=== PATIENT | male | born 1970 | race Caucasian/White ===

== ENCOUNTER 2024-09-30 18:29 | Emergency (ER) | payer OTHER, SELFPAY ==
[2024-09-30 18:43] VITALS: BP 121/79; PULSE 106; RESP 16; TEMP 36.4; O2SAT 99
[2024-09-30] MEDS: LIDOCAINE 1% LOCAL INJ 2 ML AMPUL 4 ML INFILTRATE (19:21)
--- NOTE | 2024-09-30 19:37 | ED.SKABFB ---
HPI - Skin/Abscess/Foreign Bdy General Chief complaint: Skin/Abscess/Foreign Body Stated complaint: right forearm swollen,sore Time Seen by Provider: 09/30/24 18:50 Source: patient and RN notes reviewed Mode of arrival: ambulatory Limitations: no limitations History of Present Illness HPI narrative: Patient presents today complaining of an abscess and redness to the right forearm x3 days. He increasing swelling to the right forearm since onset. History of abscess to the left hand. He has tried triple antibiotic ointment without improvement. Related Data Allergies Allergy/AdvReac Type Severity Reaction Status Date / Time No Known Allergies Allergy Mild Unverified 09/30/24 18:50 Review of Systems Review of Systems: CONSTITUTIONAL: Denies body aches, fever, chills, or sweats. EYES: Denies visual changes, redness, or discharge. ENT: Denies rhinorrhea, congestion, sore throat, or otalgia. CARDIOVASCULAR: Denies chest pain, palpitations, or edema. RESPIRATORY: Denies cough or dyspnea. GASTROINTESTINAL: Denies abdominal pain, nausea, vomiting, or diarrhea. GENITOURINARY: Denies dysuria or hematuria. SKIN: Right forearm swelling and pain MUSCULOSKELETAL: Denies back pain, joint pain, or myalgia. NEUROLOGIC: Denies headache, numbness, tingling, or weakness. PSYCH: Denies depression or anxiety. PMFSH Comments At time of signature, I have reviewed and agree with nursing past medical, surgical, social and family history unless otherwise noted. Please see nursing chart for further information. There is no relevant family history pertinent to the presenting complaint Exam Narrative: GENERAL: Well-appearing, well-nourished, and in no acute distress. HEAD: Normocephalic, atraumatic. EYES: EOMI. No redness or drainage. Conjunctivae normal. ENT: Mucous membranes pink and moist. NECK: Normal AROM. CHEST: No respiratory distress. EXTREMITIES: Right forearm: Mild to moderate swelling erythema of the forearm with 2 cm round lesion on the ulnar aspect with some clear drainage and induration. Tender to palpation. See procedure note SKIN: Warm, dry, no rash. Capillary refill normal. Normal skin turgor. NEURO: No focal deficits. Alert and oriented x3. Gait steady. PSYCH: Normal affect. No signs of depression or anxiety. Course Course Level of Care: Express Care Visit Vital Signs Vital signs: Vital Signs Temperature 97.6 F 09/30/24 18:43 Pulse Rate 106 H 09/30/24 18:43 Respiratory Rate 16 09/30/24 18:43 Blood Pressure 121/79 09/30/24 18:43 Pulse Oximetry 99 09/30/24 18:43 Oxygen Delivery Room Air 09/30/24 18:43 Temperature 97.6 F 09/30/24 18:43 Pulse Rate 106 H 09/30/24 18:43 Respiratory Rate 16 09/30/24 18:43 Blood Pressure 121/79 09/30/24 18:43 Pulse Oximetry 99 09/30/24 18:43 Oxygen Delivery Room Air 09/30/24 18:43 Reviewed Procedures Abscess I/D upper extremity: Date of Incision: 09/30/24 Time of Incision: 19:38 Side (if applicable): right (Forearm) Local Anesthetic: lidocaine 1% Amount of anesthesia used (mL): 3 Technique: incised with #11 blade Amount of fluid expressed (mL): 2 Irrigation: Yes Packing used?: none I&D Results: Pus and Blood Abcess I&D Additional Comments: Dressed with large Band-Aid. Patient tolerated procedure well MDM - Skin/Abscess/Foreign Bdy MDM Narrative Medical decision making narrative: Patient's abscess has been lanced and drained. Prescription for Bactrim sent to pharmacy. Anticipatory guidance given. Differential Diagnosis Differential diagnosis: Likely abscess of skin or subcutaneous tissue and cellulitis Critical Care Time Critical Care Time Critical Care Time: No Discharge Plan Discharge Clinical Impression: Abscess of forearm, right Patient Disposition: Home, Self-Care Condition: Stable Instructions: Antibiotic Form, Abscess Follow-up (ED), Abscess Incision and Drainage (DC) Additional Instructions: Your abscess has been lanced and drained. Wash with soap and water daily and keep covered until scabbed over. Take the Bactrim as prescribed until gone. Take Tylenol or ibuprofen for pain if needed. Follow-up with your PCP with any concerns. Go to the ER with any worsening symptoms such as fever, worsening swelling or redness. Your blood pressure was elevated above 120/80 today at Urgent Care. This puts you above the threshold for follow up. Please schedule a followup visit with your personal physician as soon as possible, for further evaluation and treatment. Even blood pressure exceeding 120/80 may indicate pre-hypertension. Patient Language: [place] Prescriptions: New sulfamethoxazole-trimethoprim [Bactrim DS] 800-160 mg tablet 1 tablet PO Q12H 10 Days Qty: 20 0RF Follow-up/Referrals: Scot Mcintosh MD [Primary Care Provider] - Time of Disposition: 19:40
== END 2024-09-30 19:45 | disposition home or self-care (01) ==
PROVIDERS: Emergency Provider Nurse Practitioner; PCP Family Medicine Adolescent Medicine
DX: L02.413 Cutaneous abscess of right upper limb (principal)
CPT/HCPCS: 10060; 99213; G0463; J2003

== ENCOUNTER 2024-10-23 19:31 | Emergency (ER) | payer OTHER, SELFPAY ==
[2024-10-23 19:38] VITALS: BP 118/71; PULSE 108; RESP 20; TEMP 37; O2SAT 100
--- NOTE | 2024-10-23 19:40 | ED_ITS ---
HPI - Skin/Abscess/Foreign Bdy General Chief complaint: Skin/Abscess/Foreign Body Stated complaint: cyst below knee right leg Time Seen by Provider: 10/23/24 19:40 Source: patient, RN notes reviewed and old records reviewed Mode of arrival: ambulatory Limitations: no limitations History of Present Illness HPI narrative: 53-year-old male presents to the [facility] with a abscess below the right knee. States that he noticed it yesterday. No treatment prior to arrival. Has a history of multiple abscesses or cysts. Related Data Allergies Allergy/AdvReac Type Severity Reaction Status Date / Time No Known Allergies Allergy Mild Unverified 09/30/24 18:50 Review of Systems Review of Systems: All systems reviewed & are unremarkable except as noted in HPI and below Constitutional: Constitutional: Reports no additional constitutional complaints ENT: Reports system reviewed and no additional complaints, except as documented Cardiovascular: Cardiovascular: Reports no additional cardiovascular complaints, Denies chest pain and Denies dyspnea Respiratory: Respiratory: Reports no additional respiratory complaints, Denies chest congestion, Denies cough and Denies dyspnea Musculoskeletal: Musculoskeletal: Reports no additional musculoskeletal complaints Integumentary/Breasts: Skin/Breast: Reports as per HPI PMFSH Comments At the time of my signature, I reviewed and agree with the nursing past medical, surgical, social, and family history. There is no relevant family history pertinent to the patient complaint. Exam Const: General: cooperative, healthy appearing, comfortable, no acute distress , well developed, alert and well nourished Nutritional Appearance: well nourished Orientation/consciousness: patient oriented x3 Limitations: no limitations HENMT: Head: normal to inspection Eyes: General: appearance normal, both eyes and all related structures Alignment and Position: alignment normal Neck: Neck: normal visual inspection, full ROM, no lymphadenopathy and no meningeal signs Chest: Chest palpation & inspection: normal inspection of the chest Resp: Effort & Inspection: normal respiratory effort and able to speak in complete sentences Cardio: Rate: regular rate Skin: General skin exam: normal color and no rashes or lesions noted Other: Below right knee, 1 cm pustule, 3 x 5 erythema surrounding. Neuro: General: patient oriented x3, gait normal, moves all extremities and no meningeal signs Cognition (Neuro): normal cognition Speech: normal speech Gait exam (Neuro): Normal gait present Extrem: General: normal to inspection, full ROM, capillary refill normal and normal gait Psych: Appearance: grossly normal and well kempt Mental Status: mental status grossly normal Speech and movement: Normal speech and movement present and Clear speech present Affect: normal affect Attitude: cooperative Course Course Level of Care: Express Care Visit Vital Signs Vital signs: Vital Signs Temperature 98.6 F 10/23/24 19:38 Pulse Rate 108 H 10/23/24 19:38 Respiratory Rate 20 10/23/24 19:38 Blood Pressure 118/71 10/23/24 19:38 Pulse Oximetry 100 10/23/24 19:38 Oxygen Delivery Room Air 10/23/24 19:38 Temperature 98.6 F 10/23/24 19:38 Pulse Rate 108 H 10/23/24 19:38 Respiratory Rate 20 10/23/24 19:38 Blood Pressure 118/71 10/23/24 19:38 Pulse Oximetry 100 10/23/24 19:38 Oxygen Delivery Room Air 10/23/24 19:38 Reviewed Procedures Abscess I/D lower extremity: Date of Incision: 10/23/24 Time of Incision: 19:45 Side (if applicable): right Local Anesthetic: lidocaine 1% Amount of anesthesia used (mL): 2.5 Technique: incised with #11 blade Amount of fluid expressed (mL): 3 I&D Results: Pus Abcess I&D Additional Comments: Explained procedure. Area cleaned with Betadine, injection of lidocaine which patient tolerated not very well. A small incision made to the abscess, purulent drainage noted. Culture collected MDM - Skin/Abscess/Foreign Bdy MDM Narrative Medical decision making narrative: Patient sitting in exam room. Patient is nontoxic in appearance, presents for an abscess to the right below the knee. Area cleaned with Betadine, opened, culture collected. Patient appropriate for outpatient treatment with close follow-up Discharge instructions reviewed with patient, as well as provided in writing per nursing staff. The instructions also include specific and strict return/GO TO THE ER as well as f/u information. All questions have been answered, and the patient deny any further questions with discharge and discharge plan. Some parts of this dictation were generated by voice recognition software and may contain typographical and/or grammatical inaccuracies. Differential Diagnosis Differential diagnosis: Likely abscess of skin or subcutaneous tissue and cellulitis Critical Care Time Critical Care Time Critical Care Time: No Discharge Plan Discharge Clinical Impression: Abscess of skin or subcutaneous tissue Qualifiers: Site of cutaneous abscess: extremity Site of cutaneous abscess of extremity: lower extremity Laterality: right Qualified Code(s): L02.415 - Cutaneous abscess of right lower limb Patient Disposition: Home Condition: Stable Instructions: Antibiotic Form, Abscess (ED), Abscess Incision and Drainage (DC) Additional Instructions: DO NOT pick at the area. This will only make the area worse. Shower and wash with soapy water. Keep area clean and dry. Take all the antibiotics as prescribed. Make sure to keep a dressing in place especially while it is draining Follow up with PCP in 7-10 days go to the ER for worsened condition or Symptoms Patient Language: Bengali Prescriptions: New clindamycin HCl [Cleocin HCl] 300 mg capsule 300 mg PO TID 7 Days Qty: 21 0RF No Action sulfamethoxazole-trimethoprim [Bactrim DS] 800-160 mg tablet 1 tablet PO Q12H 10 Days Qty: 20 0RF Follow-up/Referrals: PHYSICIAN,NURSE PRACTITIONER PHYSICIAN ASSISTANT [Primary Care Provider] - Damion Lugo MD [Physician] - Time of Disposition: 19:53
[2024-10-23] MEDS: LIDOCAINE 1% LOCAL INJ 2 ML AMPUL 4 ML INFILTRATE (19:51)
== END 2024-10-23 20:00 | disposition home or self-care (01) ==
PROVIDERS: Emergency Provider Nurse Practitioner
DX: L02.415 Cutaneous abscess of right lower limb (principal)
CPT/HCPCS: 10060; 87070; 87075; 87181; 87205; 99213; G0463; J2003

== ENCOUNTER 2024-10-28 14:34 | Emergency (ER) | payer OTHER, SELFPAY ==
[2024-10-28 14:42] VITALS: BP 135/78; PULSE 104; RESP 20; TEMP 36.5; O2SAT 97
--- NOTE | 2024-10-28 14:42 | ED_ITS ---
HPI - Skin/Abscess/Foreign Bdy General Chief complaint: Extremity Problem,Nontraumatic Stated complaint: abscess right knee came back Time Seen by Provider: 10/28/24 14:35 Source: patient Mode of arrival: ambulatory Limitations: no limitations History of Present Illness HPI narrative: Patient is a 53-year-old male that presents with right knee abscess. Patient is here 10/23 in had abscess drained and started on clindamycin. Patient has 1 day left of clindamycin. Patient states abscess has grown in size in refilled. Denies any joint pain, fever, chills, nausea, vomiting, diarrhea. Does reports mild surrounding redness. Related Data Allergies Allergy/AdvReac Type Severity Reaction Status Date / Time No Known Allergies Allergy Mild Unverified 10/28/24 14:45 Review of Systems 2 Review of Systems: All systems reviewed & are unremarkable except as noted in HPI and below Constitutional: Constitutional: Denies body ache(s), Denies chills, Denies fatigue, Denies fever(s), Denies headache(s), Denies malaise and Denies weakness Eyes: Eyes: Denies blurry vision, Denies irritation and Denies loss of vision ENT: Denies otalgia, Denies headache(s), Denies nasal discharge, Denies sinus pain and Denies sore throat Cardiovascular: Cardiovascular: Denies chest pain, Denies irregular heart rhythm and Denies dyspnea Respiratory: Respiratory: Denies dyspnea Gastrointestinal: Gastrointestinal: Denies abdominal pain, Denies melena, Denies hematochezia, Denies diarrhea, Denies nausea and Denies vomiting Musculoskeletal: Musculoskeletal: Denies back pain, Denies myalgias and Denies arthralgias Integumentary/Breasts: Skin/Breast: Denies pruritus, Denies rash and Reports wounds Neurologic: Denies headache(s), Denies loss of vision and Denies weakness Psychiatric: Psychiatric: Reports no additional psychiatric complaints Endocrine: Endocrine: Denies fatigue PMFSH Comments At time of signature, agree with nursing past medical, surgical, social and family history. There is no relevant family history pertinent to the presenting complaint. Exam 2 Const: General: cooperative, healthy appearing, comfortable, no acute distress and well nourished Nutritional Appearance: well nourished O rientation/consciousness: patient oriented x3 Limitations: no limitations HENMT: Head: normal to inspection, normocephalic and atraumatic Ears: h earing grossly normal bilaterally and external ears normal Face/Nose/Sinus: N ormal external nose present, normal facial exam and face symmetric Face and sinus: normal facial exam and face symmetric Mouth: Yes lip normal Eyes: General: appearance normal, both eyes and all related structures A lignment and Position: alignment normal and position normal Periorbital: p eriorbital findings normal Eyelids: eyelids normal Pupils: Equal, round and reactive pupils present EOM: EOMs intact bilaterally Neck: Neck: normal visual inspection, full ROM and supple Chest: Chest palpation & inspection: normal inspection of the chest Resp: Effort & Inspection: normal respiratory effort and able to speak in complete sentences Auscultation: clear to auscultation bilaterally Cardio: Rate: regular rate Rhythm: regular rhythm Heart sounds: S1 normal heart sound present and S2 normal heart sound present GI: Inspection: normal to inspection Skin: General skin exam: normal color and no rashes or lesions noted Full body images: 1. area of erythema 8x4 cm with center 3x2 cm area of blister appearance full of purulent drainage Neuro: General: patient oriented x3 and moves all extremities Cranial nerves: Yes Equal, round and reactive pupils present Speech: normal speech Gait exam (Neuro): Normal gait present Extrem: General: normal to inspection, full ROM and no edema Psych: Appearance: grossly normal and well kempt Mental Status: mental status grossly normal Speech and movement: Normal speech and movement present Affect: normal affect Attitude: cooperative Thought process: Normal thought process present Course Course Emergency Course: Patient is aware of diagnosis, understands and agrees to treatment plan. Anticipatory guidance given. Patient agrees to follow-up as directed and is aware of reasons to seek care at the emergency department. Portions of this record may have been created with voice recognition software Level of Care: Express Care Visit Vital Signs Vital signs: Vital Signs Temperature 36.5 C 10/28/24 14:42 Pulse Rate 104 H 10/28/24 14:42 Respiratory Rate 20 10/28/24 14:42 Blood Pressure 135/78 10/28/24 14:42 Pulse Oximetry 97 10/28/24 14:42 Oxygen Delivery Room Air 10/28/24 14:42 Temperature 36.5 C 10/28/24 14:42 Pulse Rate 104 H 10/28/24 14:42 Respiratory Rate 20 10/28/24 14:42 Blood Pressure 135/78 10/28/24 14:42 Pulse Oximetry 97 10/28/24 14:42 Oxygen Delivery Room Air 10/28/24 14:42 Reviewed MDM - Skin/Abscess/Foreign Bdy MDM Narrative Medical decision making narrative: Wall cleansing wound area, 3x1.5 cm blister like area opened up and drained yellow purulent discharge. wound was cleaned and covered with antibiotic ointment and bandaid. will add doxy as it was susceptible to previous wound culture. Another wound culture sent off. Pt well hydrated appearing, in no respiratory distress, hemodynamically stable. Recommend supportive care. The patient is stable at time of discharge the clinical impression was discussed and the patient was given the opportunity to ask questions, which were addressed as completely as possible given the information available at present. Anticipatory guidance and return to care precautions were discussed and the importance of primary care follow-up was stressed and encouraged. The patient voiced understanding of the plan, indications to return, and the need for follow-up. Exam findings show no acute concerns or changes Patient is appropriate for outpatient treatment and follow-up. Differential Diagnosis Differential diagnosis: Likely abscess of skin or subcutaneous tissue, cellulitis and contact dermatitis Medical Records Attestation: I reviewed the patient's medical records. Discharge Plan Discharge Clinical Impression: Abscess of skin and subcutaneous tissue Qualifiers: Site of cutaneous abscess: extremity Site of cutaneous abscess of extremity: l ower extremity Laterality: right Qualified Code(s): L02.415 - Cutaneous abscess of right lower limb Patient Disposition: Home Condition: Stable Instructions: Abscess (ED) Additional Instructions: You have had an abscess drained at [facility]. You may shower - let the soapy water clean your wound, do not scrub it. Keep your wound covered to prevent transmission of infection to other people. Take antibiotics as prescribed. You have been prescribed Doxycycline today.It may make your skin more sensitive to sunlight than normal. Make sure you wear sunscreen at all times when outside while on the medication. Keep the wound covered and dry. Once a day: wash the wound with soap/water, apply bacitracin or neosporin and re-cover the wound. Follow up with your primary care physician or in the Emergency Department in 2-3 days for a wound check. Go to the Emergency Department immediately if you develop any of the following symptoms: Fevers, Increased redness or swelling around where your abscess was, Increased pain, or Generalized weakness or vomiting Patient Language: Turkish Prescriptions: New doxycycline monohydrate 100 mg tablet 100 mg PO BID 7 Days Qty: 14 0RF mupirocin 2 % ointment 1 applic topical BID Qty: 15 0RF No Action clindamycin HCl [Cleocin HCl] 300 mg capsule 300 mg PO TID 7 Days Qty: 21 0RF Follow-up/Referrals: Scot Mcintosh MD [Primary Care Provider] - 3 Days Stand Alone Forms: Work/School Release IP Time of Disposition: 14:58
== END 2024-10-28 15:08 | disposition home or self-care (01) ==
PROVIDERS: Emergency Provider Nurse Practitioner Family; PCP Family Medicine Adolescent Medicine
DX: L02.415 Cutaneous abscess of right lower limb (principal)
CPT/HCPCS: 87070; 87075; 87181; 87205; 99213; G0463